=== PATIENT | male | born 1965 | race Caucasian/White ===

== ENCOUNTER 2016-11-13 05:52 | Emergency (ER) | payer OTHER ==
[~2016-11-13] VITALS: Ht 175.3 cm; Wt 95.3 kg
[2016-11-13] MEDS ORDERED: ASPIRIN EC81 M1 PO (06:01)
--- NOTE | 2016-11-13 06:26 | ED AMS/SEIZURE/WEAK/DIZZY ---
History of Present Illness General Chief Complaint: Headache Stated Complaint: MANRIQUEZ, HIGH BP?? Source: patient, family Exam Limitations: no limitations Vital Signs & Intake/Output Vital Signs & Intake/Output Vital Signs Date Time Temp Pulse Resp B/P B/P Pulse O2 O2 Flow FiO2 Mean Ox Delivery Rate 11/13 0811 98.0 63 18 151/97 97 Room Air 11/13 0601 97.0 61 18 154/96 98 Room Air Allergies Coded Allergies: NO KNOWN ALLERGIES (07/23/14) Reconcile Medications Aspirin (Ecotrin*) 81 MG TABLET. 1 TAB PO DAILY HEART HEALTH (Reported) Triage Note: PT TO ED WITH COMPLAINTS OF HEADACHE THAT STARTED LAST NIGHT. PT TOOK EXCEDRIN WITH RELIEF, NO HEADACHE AT THIS TIME. PT STATES "I JUST WANT MY BP TAKEN." Triage Nurses Notes Reviewed? yes HPI: Patient presents for evaluation of dizziness. Patient states that he has a history of high blood pressure but stopped his blood pressure medications a long time ago. He states he simply takes an 81 mg aspirin. Yesterday he had a headache and his face turned red. He took Excedrin with resolution of the headache but the redness persisted. He has also been experiencing a mild to moderate vertigo and he felt that this was a reflection of a high blood pressure so he came to the emergency department for evaluation. He denies any associated visual changes chest pain dyspnea or swelling. He states he has been checking his blood pressure at [employer] and other places and it is typically 150s over 90s. Past History Travel History Traveled to [place] past 21 day No Medical History Any Pertinent Medical History? see below for history Cardiovascular: hypertension Surgical History Surgical History: heart surgery as a child Psychosocial History What is your primary language Malagasy Tobacco Use: Never used ETOH Use: denies use Illicit Drug Use: denies illicit drug use Family History Hx Contributory? No Review of Systems Review of Systems Constitutional: Reports: no symptoms. EENTM: Reports: no symptoms. Respiratory: Reports: no symptoms. Cardiovascular: Reports: no symptoms. GI: Reports: no symptoms. Genitourinary: Reports: no symptoms. Musculoskeletal: Reports: no symptoms. Skin: Reports: no symptoms. Neurological/Psychological: Reports: no symptoms. Hematologic/Endocrine: Reports: no symptoms. Immunologic/Allergic: Reports: no symptoms. All Other Systems: Reviewed and Negative Physical Exam Physical Exam General Appearance: see below Comments: Gen.: Well-nourished, well-developed, no acute respiratory distress. Head: Normocephalic, atraumatic. Eyes: Normal inspection bilaterally, PERRLA, EOMI, fundi normal Ears: Normal inspection bilaterally Nose: Normal inspection Throat/mouth : Moist mucosa Neck: Supple, full range of motion, no goiter, no carotid bruits Heart: Regular rate and rhythm, systolic murmur Lungs: Clear to auscultation bilaterally with normal air entry Chest: Nontender Back: Normal range of motion Abdomen: Soft, nontender, nondistended, normal bowel sounds Extremities: Normal range of motion grossly, equal radial pulses, no cyanosis clubbing or edema Neurologic: Cranial nerves grossly intact, speech is clear Skin: warm and dry Psychiatric: Calm, cooperative, no apparent delusions or hallucinations Core Measures ACS in differential dx? No CVA/TIA Diagnosis: No Severe Sepsis Present: No Septic Shock Present: No Progress Differential Diagnosis: anemia, CVA/stroke, dehydration, vertigo Plan of Care: Orders Procedure Date/time Status TROPONIN LEVEL 11/13 624 Complete CBC WITHOUT DIFFERENTIAL 11/13 624 Complete BASIC METABOLIC PANEL 11/13 624 Complete EKG 11/13 624 Active Laboratory Tests 11/13/16 0645: Anion Gap 11, Estimated GFR > 60, BUN/Creatinine Ratio 21.3, Glucose 119 H, Calcium 9.1, Troponin I < 0.01, CBC w Diff NO MAN DIFF REQ, RBC 5.26, MCV 86.2, MCH 29.2, RDW 12.6, MPV 9.2, Gran % 65.9, Lymphocytes % 22.8, Monocytes % 8.2, Eosinophils % 2.5, Basophils % 0.6, Absolute Granulocytes 3.7, Absolute Lymphocytes 1.3, Absolute Monocytes 0.5, Absolute Eosinophils 0.1, Absolute Basophils 0, PUBS MCHC 33.8 Diagnostic Imaging: Discussed w/RAD: CT Scan. Radiology Impression: PATIENT: JORGE ALBERTO ROMAN PRESENT AGE : 51 PATIENT ACCOUNT NO: [id number] : 64 LOCATION: [facility] ORDERING PHYSICIAN: VINCENT HORAN MD SERVICE DATE: 11/13/16 EXAM TYPE: CAT - CT HEAD WO IV CONTRAST EXAMINATION: CT HEAD WITHOUT CONTRAST CLINICAL INFORMATION: 51-year-old man with untreated hypertension, headache, and dizziness. COMPARISON : None TECHNIQUE: Contiguous axial imaging was performed from the skull base to vertex without intravenous administration of contrast. DLP: 618 mGy-cm FINDINGS: There is no evidence of acute intracranial hemorrhage or territorial infarction. No abnormal mass effect or midline shift is seen. Banuelos to white matter differentiation is well preserved. No extra-axial fluid collections are identified. The ventricles are normal in size. There is no abnormal attenuation within the brain parenchyma. The osseous structures and soft tissues are normal. The mastoid air cells and visualized portions of the paranasal sinuses are well aerated. IMPRESSION: No acute intracranial pathology. DICTATED BY: NICK BROWN MD DATE/TIME DICTATED:11/13/16715 WINDOWS SERVER ADMINISTRATOR:CRAFT DATE/TIME TRANSCRIBED:11/13/16715 CONFIDENTIAL, DO NOT COPY WITHOUT APPROPRIATE AUTHORIZATION. <Electronically signed in Other Vendor System> SIGNED BY: NICK BROWN MD 11/13/16723 CXR Impression: PATIENT: JORGE ALBERTO ROMAN PRESENT AGE: 51 PATIENT ACCOUNT NO: [id number] : 64 LOCATION: [facility] ORDERING PHYSICIAN: VINCENT HORAN MD SERVICE DATE: 11/13/16 EXAM TYPE: RAD - XRY-CHEST XRAY, PA AND LATERAL EXAMINATION: XR CHEST CLINICAL INFORMATION: 51-year-old man with CHF. COMPARISON: 07/23/2014 chest radiograph TECHNIQUE: 2 views of the chest were obtained. FINDINGS: The lungs are well expanded and clear, without evidence of focal airspace consolidation or overt pulmonary edema. Heart size is at the upper range of normal and stable. There are no pleural effusions. IMPRESSION: No radiographic evidence of an acute cardiopulmonary process. DICTATED BY: NICK BROWN MD DATE/TIME DICTATED:11/13/16729 WINDOWS SERVER ADMINISTRATOR:CRAFT DATE/TIME TRANSCRIBED:11/13/16729 CONFIDENTIAL, DO NOT COPY WITHOUT APPROPRIATE AUTHORIZATION. <Electronically signed in Other Vendor System> SIGNED BY: NICK BROWN MD 11/13/16734 Initial ED EKG: NSR, rate (63), st SEGMENT DEPRESSIONS IN THE ANTEROLATERAL LEADS WITH st ELEVATIONS INFERIORLY, NO CHANGE COMPARED WITH PRIOR ekg Prior EKG: unchanged Departure Departure Disposition: HOME OR SELF CARE Condition: Stable Clinical Impression Primary Impression: High blood pressure Qualifiers: Hypertension type: essential hypertension Qualified Code: I10 - Essential (primary) hypertension Referrals: MIAN TALLEY,DENNY Mckeon (PCP/Family) Additional Instructions: Follow-up with your primary care doctor for reevaluation of your blood pressure this week. He very likely have high blood pressure and this will require treatment. Low-salt diet. Avoid caffeine. Return if any concerns or sudden worsening. Please note that there might be incidental findings in your evaluation that are unrelated to the current emergency department visit. Please notify your primary care doctor about this emergency department visit in order to obtain and review all of the testing performed so that these incidental findings can be monitored as needed. If you had an x-ray performed, please understand that some fractures may not be seen on the initial set of x-rays. If your symptoms persist you might need a repeat set of x-rays to check for such a fracture. If you had a laceration evaluated, please understand that foreign bodies such as glass or wood may not be visible to the naked eye or on plain x-rays. If the wound becomes red, swollen, increasingly more painful or if there is any drainage from the wound, please have it reevaluated by a physician for the possibility of a retained foreign body. Thank you for choosing the [facility] Emergency Department for your care. It was a pleasure to serve you today. Vincent Horan M.D. [facility] Departure Forms: Customer Survey General Discharge Information
[2016-11-13 06:54] LABS: ABSOLUTE BASOPHIL COUNT 0 /CUMM (0.0-0.2); ABSOLUTE EOSINOPHIL COUNT 0.1 /CUMM (0.0-0.7); ABSOLUTE GRANULOCYTE CT 3.7 /CUMM (1.4-6.5); ABSOLUTE LYMPH COUNT 1.3 /CUMM (1.2-3.4); ABSOLUTE MONOCYTE COUNT 0.5 /CUMM (0.10-0.60); BASOPHIL % 0.6 % (0.0-2.0); EOSINOPHIL % 2.5 % (0-5); GRANULOCYTE % 65.9 % (42.2-75.2); HEMATOCRIT 45.4 % (42-52); MEAN CORPUSCULAR HGB 29.2 PG (27.0-31.0); MEAN CORPUSCULAR HGB CONC 33.8 G/DL (33.0-37.0); MEAN CORPUSCULAR VOLUME 86.2 FL (80.0-94.0); MEAN PLATELET VOLUME 9.2 FL (7.4-10.4); PLATELET COUNT 176 /CUMM (130-400); RBC DISTRIBUTION WIDTH 12.6 % (11.5-14.5); RED BLOOD CELL CT 5.26 /CUMM (4.70-6.10); WHITE BLOOD CELL COUNT 5.7 /CUMM (4.8-10.8)
--- NOTE | 2016-11-13 07:24 | CT SCAN REPORT ---
EXAMINATION: CT HEAD WITHOUT CONTRAST CLINICAL INFORMATION: 51-year-old man with untreated hypertension, headache, and dizziness. COMPARISON: None TECHNIQUE: Contiguous axial imaging was performed from the skull base to vertex without intravenous administration of contrast. DLP: 618 mGy-cm FINDINGS: There is no evidence of acute intracranial hemorrhage or territorial infarction. No abnormal mass effect or midline shift is seen. Banuelos to white matter differentiation is well preserved. No extra-axial fluid collections are identified. The ventricles are normal in size. There is no abnormal attenuation within the brain parenchyma. The osseous structures and soft tissues are normal. The mastoid air cells and visualized portions of the paranasal sinuses are well aerated. IMPRESSION: No acute intracranial pathology.
--- NOTE | 2016-11-13 07:35 | RADIOLOGY REPORT ---
EXAMINATION: XR CHEST CLINICAL INFORMATION: 51-year-old man with CHF. COMPARISON: 07/23/2014 chest radiograph TECHNIQUE: 2 views of the chest were obtained. FINDINGS: The lungs are well expanded and clear, without evidence of focal airspace consolidation or overt pulmonary edema. Heart size is at the upper range of normal and stable. There are no pleural effusions. IMPRESSION: No radiographic evidence of an acute cardiopulmonary process.
[2016-11-13 08:11] VITALS: BP 151/97
== END 2016-11-13 08:35 ==
LOC: ERH 05:52
PROVIDERS: Emergency Medicine
DX: I10 Essential (primary) hypertension (principal)
CPT/HCPCS: 93005; 93010